=== PATIENT | male | born 1930 | race Caucasian/White ===

== ENCOUNTER → 2017-02-11 | Outpatient (CLI) | payer MEDICARE, BC ==
[~2017-02-11] MED LIST: COUMADIN ** IA3 MG PO; FEOSOL325 MG PO; FLOMAX0.4 MG PO; LEVOTHROID (SY25 MCG PO; LOTENSIN10 MG PO; MULTAQ400 MG PO; NORVASC10 MG PO; NORVASC5 MG PO; ROZEREM8 MG PO; TYLENOL325 MG PO; ZEBETA5 MG PO; ZESTORETIC 20-1 EACH PO
[2017-02-11 13:12] LABS: ALBUMIN 3.4 gm/dL (3.5-5.0); ALK PHOS 67 IU/L (33-138); ALT 16 IU/L (12-78); ANION GAP 13.9 (10.0-19.0); AST 19 IU/L (10-40); BLOOD UREA NITROGEN 13 mg/dL (6-24); CALCIUM 8.1 mg/dL (8.5-10.5); CHLORIDE 102 mMol/L (96-110); CO2 25 mMol/L (22-32); CREATININE 1.1 mg/dL (0.6-1.3); ESTIMATED GFR (MDRD EQUATION) > 60; POTASSIUM 3.9 mMol/L (3.7-5.1); SODIUM 137 mMol/L (135-145); TOTAL BILIRUBIN 0.8 mg/dL (0.0-1.5); TOTAL PROTEIN 6.3 g/dL (6.0-8.4)
== END | disposition disaster alternative care site (69) ==
LOC: LNHI 12:54
PROVIDERS: Internal Medicine Interventional Cardiology
DX: I10 Essential (primary) hypertension (principal); R00.1 Bradycardia, unspecified; I48.0 Paroxysmal atrial fibrillation; Z95.0 Presence of cardiac pacemaker